=== PATIENT | male | born 1950 | race Two or more races ===

== ENCOUNTER → 2017-03-27 | Outpatient (CLI) | payer MEDICARE, BC ==
--- NOTE | 2017-03-27 17:13 | RADRPT ---
PROCEDURE: XR Left hip and pelvis. CLINICAL INDICATION: Left hip pain and pelvic pain. TECHNIQUE: 3 views. Frontal pelvis. Frontal and lateral left hip. COMPARISON: None. FINDINGS: There is no fracture or dislocation. The soft tissues are normal. There are degenerative changes of both hips with joint space narrowing and osteophytes. Left is wor se than right. There is no lytic or blastic lesion. The upper pelvis is not included on the images. IMPRESSION: 1. Moderate degenerative changes of both hips with left worse than right. 2. Otherwise unremarkable study. RPTAT: QQ .Wang Solitario MD, MD Date Time Electronically viewed and signed by .Wang Solitario MD, MD on 03/27/2017 17:13 .R/
== END | disposition home or self-care (01) ==
LOC: HKI 15:12
PROVIDERS: ATTEND Orthopaedic Surgery
DX: M25.552 Pain in left hip (principal); M16.12 Unilateral primary osteoarthritis, left hip
CPT/HCPCS: 73502; G0463